=== PATIENT | female | born 1990 | race Caucasian/White ===

== ENCOUNTER 2021-01-21 15:43 | Emergency (ER) | payer OTHER ==
[~2021-01-21] VITALS: Ht 165.1 cm; Wt 52.2 kg
[~2021-01-21 15:43] MED LIST: PRENATAL 19 TA1 EAC1 PO
== END 2021-01-21 20:07 | disposition home or self-care (01) ==
LOC: ER 15:43
DX: O26.859 Spotting complicating pregnancy, unspecified trimester (principal); Z3A.08 8 weeks gestation of pregnancy; N83.209 Unspecified ovarian cyst, unspecified side

== ENCOUNTER 2021-02-03 06:42 | Day surgery (SDC) | payer OTHER ==
[~2021-02-03] VITALS: Ht 165.1 cm; Wt 53.1 kg
[2021-02-03] MEDS ORDERED: PRENATAL + DHA1 EAC1 PO (07:14)
== END 2021-02-03 22:30 | disposition home or self-care (01) ==
LOC: ER 06:42 → CIR.AMB 13:14
PROVIDERS: ATTEND Obstetrics & Gynecology
DX: O03.4 Incomplete spontaneous abortion without complication (principal); Z30.432 Encounter for removal of intrauterine contraceptive device; Z20.822 Contact with and (suspected) exposure to COVID-19